=== PATIENT | male | born 1965 | race Caucasian/White ===

== ENCOUNTER 2022-10-30 08:29 | Emergency (ER) | payer OTHER, SELFPAY ==
[2022-10-30 08:36] VITALS: BP 121/74; PULSE 82; RESP 20; TEMP 36.9; O2SAT 96; BMI 22.0
--- NOTE | 2022-10-30 08:50 | HMH.EDGENADL ---
Discharge Plan Disposition Patient Disposition: Home, Self-Care Referrals Follow up/Referrals: Provider,Referral, MD [Primary Care Provider] - See instructions Activity Restrictions/Add. Instructions Additional Instructions/Restrictions: You had an ocular foreign body which has been removed and there remains a corneal rust ring. Make sure that you continue to take your topical antibiotic drops and follow-up as soon as possible with twister frame tender. A referral has been made you may call at 10 AM to make an appointment to be seen next available. Clinical Impressions Clinical Impression: Acute foreign body of left cornea, Corneal rust ring of left eye Discharge ED Provider: Polo Acosta General Adult HPI General Chief complaint: Eye Problems Stated complaint: AO [id number] FO in left eye Time Seen by Provider: 10/30/22 08:41 Mode of Arrival: Ambulatory Source of Information: Patient Limitations: No Limitations Description of Symptoms (Recalled from ER Triage Doc. by RN): pt to ed c/o left eye irritation. 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 States he was wearing eye protection and pain began 3 to 4 hours after he was working. Only on his left eye. Light is significantly bothering him he said he had a foreign body that was metallic in the past and this feels very similar. [facility] Disclaimer: The information contained in this section may have been updated after the patient was seen, as this information can be updated by other users. Social History Smoking Status: Never smoker alcohol intake: never current occupational status: other Travel in the last 8 weeks: None ROS Obtained: Yes All systems reviewed & no additional complaints except as documented Physical Exam General General appearance: alert Eye Eye exam: Present conjunctival redness, conjunctival injection and other (There is a punctate 1 to 2 mm metallic foreign body in the visual axis of the left eye no fluorescein uptake on exam) Respiratory Respiratory exam: Present normal lung sounds bilaterally; Absent respiratory distress Cardiovascular Cardiovascular exam: Present regular rate; Absent tachycardia Neurological Exam Neurological exam: Present alert and oriented X3 Medical Decision Making Loco Inquiry Pt receiving controlled substance: No Vital Signs: 10/30/22 08:36 Temperature 98.4 F Temperature Source Oral Pulse Rate [Left Radial] 82 Respiratory Rate 20 Blood Pressure [Right Arm] 121/74 Blood Pressure Mean [Right Arm] 89 02 Sat by Pulse Oximetry 96 Oxygen Delivery Method Room Air Orders (Tests/Meds): ED MEDICATIONS Discontinued Medications Generic Name Dose Route Start Last Admin Trade Name Everton PRN Reason Stop Dose Admin Tetanus/Reduced Diphtheria/Acell Pertussis 0.5 ml 10/30/22 08:50 10/30/22 09:04 Tet/Diphth/Pert-Adult 0.5ml Syringe IM 10/30/22 08:51 0.5 ml .ONCE ONE Administration Medical Decision Narrative: 57-year-old with superficial corneal epithelial pain and what appears to be a very small metallic foreign body without a significant rust ring. We will remove this with the side of a beveled needle. Patient was given tetracaine with complete resolution of his pain. We will give him topical antibiotic ointment drops and advised that he follow-up with an twister frame tender. Corneal foreign body was removed I subsequently did a slit-lamp exam which showed an obvious rust ring that remained. I advised that he follow-up with ophthalmology. Topical antibiotic ointments were given to him. No remaining foreign body was noted. Patient felt better upon discharge. Procedures Foreign Body Removal Time Out Performed: Yes Site: left and other (eye, cornea ) Description of foreign body: o
[2022-10-30 09:42] VITALS: BP 115/78; PULSE 85; RESP 18; TEMP 36.7; O2SAT 98
== END 2022-10-30 09:47 | disposition home or self-care (01) ==
PROVIDERS: Emergency Provider Student in an Organized Health Care Education/Training Program
DX: H16.022 Ring corneal ulcer, left eye (principal); T15.02XA Foreign body in cornea, left eye, initial encounter; Z23 Encounter for immunization
CPT/HCPCS: 90715; 96372; 99283

== ENCOUNTER 2024-10-18 10:04 | Outpatient (CLI) | payer BC, SELFPAY ==
--- OUTSIDE RECORDS SUMMARY | 2024-09-10 10:30 | XMS_ITS | Encounter Summary ---
Author Organization [facility] Address [address] [place] [address] Phone [email or web address] Care Team Providers Care Vocational Adviser Name Role Phone Unavailable Primary Care Provider Unavailabl e Encounter Details Date Type Department Care Team (Latest Contact Info) Description 09/10/2024 10:30 AM EDT Clinical Support [facility] [address] [facility] [address] [place] [address] Delfina De La Fuente NP [address] [place] [address] Right arm weakness (Primary Dx); Facial droop Social History Tobacco Use Types Packs/Day Years Used Date Smoking Tobacco: Every Day Cigarettes Smokeless Tobacco: Never Sex and Gender Information Value Date Recorded Sex Assigned at Not on file Legal Sex Male 6:05 AM CDT Gender Identity Not on file Sexual Orientation Not on file documented as of this encounter Progress Notes * Delfina De La Fuente NP - 09/10/2024 10:30 AM EDT Allergies Chart Review Health Maintenance History Immunizations Screenings Search Synopsis This Visit Vital Signs Assessment & Plan Right arm weakness Facial droop Due to symptoms recommended ED visit, pt is agreeable to ambulance transport. Reports to [facility], pt transferred to their care in stable condition for transport to and continuedcare at [facility]. Attempt x 2 to contact pt's son at patient request, Arvind: [phone], message left to contact clinic. Pt advised to f/u with GL later today for update. [facility] 240 ph: [phone] contacted with information pt transported to hospital at pt request. ECG NSR. Orders: ECG 12 lead Follow-up: No follow up orders placed. Subjective Ayaan White is a 59 y.o. Reason(s) for visit on 09/10/2024: Seen on emergency basis with disruption in normal clinic services. HPI: Pt presents as emergency walk in with c/o right arm weakness and numbness. Reports symptoms startedyesterday with numbness in right arm, has progressed to weakness and is now having a difficult timemoving right arm at all. Initially also had loss of vision that resolved fairly quickly. Denies anydaily medications. Denies any history of cardiac issues, hypertension, high cholesterol although admits he hasn't had labs or a provider visit in years. 1 PPD smoker x 38 years. Review of Systems Constitutional: Negative. HENT: Negative for trouble swallowing and voice change. Respiratory: Negative. Cardiovascular: Negative. Gastrointestinal: Negative. Neurological: Positive for facial asymmetry, weakness and numbness. Negative for dizziness, tremors, seizures, syncope, speech difficulty and light-headedness. Psychiatric/Behavioral: Negative. The following portions of the patient's chart were reviewed by me during this encounter and updatedas appropriate: Tobacco Allergies Meds Problems Med Hx Surg Hx Fam Hx Objective Visit Vitals Smoking Status Every Day Physical Exam Vitals reviewed. Constitutional: Appearance: Normal appearance. HENT: Head: Normocephalic. Cardiovascular: Rate and Rhythm: Normal rate and regular rhythm. Pulses: Normal pulses. Heart sounds: Normal heart sounds. Pulmonary: Effort: Pulmonary effort is normal. Skin: General: Skin is warm and dry. Capillary Refill: Capillary refill takes less than 2 seconds. Neurological: General: No focal deficit present. Mental Status: He is alert and oriented to person, place, and time. Cranial Nerves: Facial asymmetry (slight right facial droop) present. Sensory: Sensory deficit (reports abnormal sensation right arm) present. Motor: Weakness (right arm) and pronator drift (right arm) present. Psychiatric: Mood and Affect: Mood normal. Behavior: Behavior normal. Normal speech, no slurred speech. Able to say phrase You can't teach an old dog new tricks without difficulty. Delfina De La Fuente NP 09/10/2024 Note to patient: The Century Cures Act makes medical notes like these available to patients inthe interest of transparency. However, be advised this is a medical document. It is intended as peer to peer communication. It is written in medical language and may contain abbreviations or verbiagethat are unfamiliar. It may appear blunt or direct. Medical documents are intended to carry relevant information, facts as evident, and the clinical opinion of the practitioner. documented in this encounter Plan of Treatment Not on file documented as of this encounter Procedures Procedure Name Priority Date/Time Associated Diagnosis Comments ECG 12-LEAD Routine 09/10/2024 12:18 PM EDT Right arm weakness Facial droop documented in this encounter Results * ECG 12 lead (09/10/2024 12:18 PM EDT) Impressions Delfina De La Fuente NP - 09/10/2024 12:18 PM EDT NSR Delfina De La Fuente NP ECG ORDERABLES Final Result documented in this encounter Visit Diagnoses Diagnosis Right arm weakness- Primary Other musculoskeletal symptoms referable to limbs Facial droop Facial weakness documented in this encounter
--- OUTSIDE RECORDS SUMMARY | 2024-09-14 16:00 | XMS_ITS | Encounter Summary ---
Author Organization [facility] Address [address] [place] [address] Phone CareEverywhereSuppor Care Team Providers Care Desk Lieutenant Name Role Phone Unavailable Primary Care Provider Unavailabl e Reason for Visit * Reason Comments Return to Work / Duty Encounter Details Date Type Department Care Team (Latest Contact Info) Description 09/14/2024 4:00 PM EDT Clinical Support MALATHI [address] [place] [address] Emmanuel Canchola RN [address] [place] [address] Return to work evaluation (Primary Dx) Social History Tobacco Use Types Packs/Day Years Used Date Smoking Tobacco: Every Day Cigarettes Smokeless Tobacco: Never Depression Answer Date Recorded PHQ Total Score 0 09/14/2024 Sex and Gender Information Value Date Recorded Sex Assigned at Not on file Legal Sex Male 6:05 AM CDT Gender Identity Not on file Sexual Orientation Not on file documented as of this encounter Last Filed Vital Signs Vital Sign Reading Time Taken Comments Blood Pressure 111/74 09/14/2024 3:20 PM EDT Pulse 98 09/14/2024 3:20 PM EDT Temperature - - Respiratory Rate 18 09/14/2024 3:20 PM EDT Oxygen Saturation 97% 09/14/2024 3:20 PM EDT Inhaled Oxygen Concentration - - Weight - - Height - - Body Mass Index - - documented in this encounter Patient Instructions * Patient Instructions* Emmanuel Canchola RN - 09/14/2024 4:00 PM EDT RTW Regular Duty per release note RTC PRN documented in this encounter Progress Notes * Emmanuel Canchola RN - 09/14/2024 4:00 PM EDT Subjective Ayaan White is a 59 y.o. male who presents for personal return to work after personal medical leave of absence for R arm pain. WD ID: [id number] Employer: [employer]: [id number] Shift: 2 Full-time GL and #: Unknown GL Previous/current indefinite restrictions? No LDW: 09/10/24 DOS: NA PROCEDURE: NA SURGEON: NA RELEASE: Regular Duty 09/14/24 Additional notes from phone call: TM walked into [facility] clinic on 09/10/24 for R arm pain. TM was showing stroke symptoms so ambulance was called and TM was transported to [facility]. Released reg duty. If WMLOA, still getting compensation from work comp? No: [employer] If WMLOA, treatment for any personal medical condition during leave? No If PMLOA, work-related injury immediately before leave? No Same day occ or personal follow up scheduled? No Reviewed and/or scheduled for WC/WH? No Request sent to confirm cost center? No Above per Rahel Vyas, EMT phone call 09/10/2024 reviewed by triage nurse. PMLOA. TM states ALS to [facility] ER on 09/10/24. TM states everything looked good and was told possibleslight obstruction that worked itself out . TM states no cardio F/U done. TM states started on cholesterol medication. TM states all symptoms resolved. TM states 0/10 at rest and worst. TM states CT was WNL. TM states he feels ready to RTW. Consulted with Jama BAHENA who agrees with POC Triage nurse: TAMIR RN HPI History Reviewed: Tobacco Meds Med Hx Surg Hx Objective Visit Vitals BP 111/74 Pulse 98 Resp 18 SpO2 97% Smoking Status Every Day Review of Systems PHQ-9 Total Score: 0 (09/14/2024 3:21 PM) Physical Exam Assessment: ICD-10-CM ICD-9-CM 1. Return to work evaluation Z76.89 V72.85 No orders of the defined types were placed in this encounter. There are no Patient Instructions on file for this visit. documented in this encounter Plan of Treatment Not on file documented as of this encounter Visit Diagnoses Diagnosis Return to work evaluation- Primary Other specified examination documented in this encounter
--- OUTSIDE RECORDS SUMMARY | 2024-10-18 10:08 | XMS_ITS | Clinical Summary ---
Author Organization [facility] Address [address] [place] [address] Care Team Providers Care Geriatric Psychiatrist Name Role Phone Provider, No Known Primary Care Provider Unavail able Allergies No known active allergies Medications amoxicillin-clav ulanate (AUGMENTIN) 875-125 MG per tabletIndication s:Acute mucoid otitis media of right ear Take 1 tablet by mouth 2 (Two) Times a Day. 20 tablet 03/13/2018 Active predniSONE (DELTASONE) 20 MG tabletIndication s:Acute mucoid otitis media of right ear Take 1 tablet by mouth Daily. 5 tablet 03/13/2018 Active Active Problems No known active problems Social History Tobacco Use Types Packs/Day Years Used Date Smoking Tobacco: Every Day Cigarettes Alcohol Use Standard Drinks/Week Comments Yes 1 (1 standard drink = 0.6 oz pur e alcohol) Abuse Screen Answer Date Recorded Unsafe at Home or Work/School Not on file Feels Threatened by Someone? Not on file 01/2023 Does Anyone Keep You from Co ntacting Others or Doint Things Outside the Home? Not on file 12/19/2022 Physical Sign of Abuse Present Not on file 1 Housing Stability Answer Date Recorded Current Living Arrangements Not on file 12/09 Potentially Unsafe Housing Conditions Not on quirino e 12/19/2022 Family and Community Support Answer Sushil e Recorded Help with Day-to-Day Activities Not on file 12/19/2022 Lonely or Isolated Not on file 12/19/2022 Employment Answer Date Recorded Do you want help finding or keeping work or a jorgito b? Not on file 12/19/2022 Disabilities Answer Date Recorded Concentrating, Remembering, or Making Decisions Difficulty Not on file 12/19/2022 Doing Errands Independently Difficulty Not on fi le 12/19/2022 Education Answer Date Recorded Help with school or training? Not on file Preferred Language Not on file 12/19/2022 Sex and Gender Information Value Date Recorded Sex Assigned at Not on file Legal Sex Male 8:37 AM EDT Gender Identity Not on file Sexual Orientation Not on file Last Filed Vital Signs Vital Sign Reading Time Taken Comments Blood Pressure 120/80 03/13/2018 12:20 PM EST Pulse 80 03/13/2018 12:20 PM EST Temperature 36.8 C (98.3 F) 03/13/2018 12:20 PM EST Respiratory Rate 18 10/10/2015 9:44 AM EDT Oxygen Saturation 98% 03/13/2018 12:20 PM EST Inhaled Oxygen Concentration - - Weight 68 kg (150 lb) 10/10/2015 8:45 AM EDT Height 172.7 cm (5' 8 ) 10/10/2015 8:45 AM EDT Body Mass Index 22.81 10/10/2015 8:45 AM EDT Plan of Treatment Health Maintenance Due Date Last Done Comments TDAP/TD VACCINES (1 - Tdap) 05/21/1986 COLOGUARD 05/21/2012 COLON CANCER SCREENING 5 YEAR SIGMOIDOSCOPY 05/21/2012 COLONOSCOPY 05/21/2012 COLORECTAL CANCER SCREENING 05/21/2012 CT COLONOGRAPHY 05/21/2012 FECAL OCCULT BLOOD TEST 05/21/2012 FIT Testing (1 year) 05/21/2012 Pneumococcal Vaccine 50+ (1 of 1 - PCV) 05/21/2017 ZOSTER VACCINE (1 of 2) 05/21/2017 ANNUAL PHYSICAL 03/13/2018 HEPATITIS C SCREENING 03/13/2018 COVID-19 Vaccine ( - season) 2023 INFLUENZA VACCINE 12/09/2024 Care Teams Geriatric Psychiatrist Relationship Specialty Start Date End Date Provider, No Known [facility] [address] PCP - General 10/10/15
--- OUTSIDE RECORDS SUMMARY | 2024-10-18 10:08 | XMS_ITS | Encounter Summary ---
Author Organization [facility] Address [address] [place] [address] Phone [email or web address] Care Team Providers Care Flight Attendant/Inflight Supervisor Name Role Phone Unavailable Primary Care Provider Unavailabl e Encounter Details Date Type Department Care Team (Late st Contact Info) Description 09/14/2024 Telephone [facility] [address] [place] [phone] Rahel Vyas EMT Social History Tobacco Use Types Packs/Day Years Used Date Smoking Tobacco: Every Day Cigarettes Smokeless Tobacco: Never Depression Answer Date Recorded PHQ Total Score 0 09/14/2024 Sex and Gender Information Value Date Recorded Sex Assigned at Not on file Legal Sex Male 6:05 AM CDT Gender Identity Not on file Sexual Orientation Not on file documented as of this encounter Miscellaneous Notes * Telephone Encounter - JOVANY Zavala - 09/14/2024 7:27 AM EDT Ayaan White calls clinic to discuss return to work after personal medical leave of absence for R arm pain. WD ID: Employee ID Not Defined Employer: [employer]: [id number] Shift: 2 Full-time GL and #: Unknown GL Previous/current indefinite restrictions? No LDW: 09/10/24 DOS: NA PROCEDURE: NA SURGEON: NA RELEASE: Regular Duty 09/14/24 Additional notes from phone call: TM walked into [facility] clinic on 09/10/24 for R arm pain. TM was showing stroke symptoms so ambulance was called and TM was transported to [facility]. Released reg duty. If WMLOA, still getting compensation from work comp? No: [employer] If WMLOA, treatment for any personal medical condition during leave? No If PMLOA, work-related injury immediately before leave? No Same day occ or personal follow up scheduled? No Reviewed and/or scheduled for WC/WH? No Request sent to confirm cost center? No Rahel Vyas, EMT documented in this encounter Plan of Treatment Not on file documented as of this encounter Visit Diagnoses Not on filedocumented in this encounter
--- OUTSIDE RECORDS SUMMARY | 2024-10-18 10:08 | XMS_ITS | Clinical Summary ---
Author Organization [facility] Address [address] [place] [address] Phone [email or web address] Care Team Providers Care Helpdesk Technician Name Role Phone Unavailable Primary Care Provider Unavailabl e Allergies No known active allergies Medications atorvastatin (LIPITOR) 20 MG tablet 09/11/2024 Active Active Problems No known active problems Encounters Date Type Department Care Team Description 09/14/2024 4:00 PM EDT Clinical Support [facility] [address] [address] Emmanuel Canchola, JAQUAN Return to work evaluation (Primary Dx) 09/14/[address] [address] Rahel Vyas, JOVANY 09/10/2024 10:30 AM EDT Clinical Support [address] [address] Delfina De La Fuente NP Right arm weakness (Primary Dx); Facial droop 09/10/2024 Telephone [facility] [address] [place] [phone] Sher Steiner RN 09/10/2024 Telephone [facility] [address] [place] [address] Sher Steiner RN from Last 3 Months Social History Tobacco Use Types Packs/Day Years Used Date Smoking Tobacco: Every Day Cigarettes Smokeless Tobacco: Never Tobacco Cessation:Ready to Q uit: Not Asked; Counseling Given: Not Answered Depression Answer Date Recorded PHQ Total Score 0 09/14/2024 Sex and Gender Information Value Date Recorded Sex Assigned at Not on file Legal Sex Male 6:05 AM CDT Gender Identity Not on file Sexual Orientation Not on file Last Filed Vital Signs Vital Sign Reading Time Taken Comments Blood Pressure 111/74 09/14/2024 3:20 PM EDT Pulse 98 09/14/2024 3:20 PM EDT Temperature 36.7 C (98 F) 07/29/2024 12:55 PM EDT Respiratory Rate 18 09/14/2024 3:20 PM EDT Oxygen Saturation 97% 09/14/2024 3:20 PM EDT Inhaled Oxygen Concentration - - Weight 60.3 kg (133 lb) 07/29/2024 12:55 PM EDT Height 172.7 cm (5' 8 ) 07/29/2024 12:55 PM EDT Body Mass Index 20.22 07/29/2024 12:55 PM EDT Plan of Treatment Health Maintenance Due Date Last Done Comments CT Colonography 1967 Colonoscopy 1967 Colorectal Cancer Screening Combo 1967 DNA Cologuard 1967 Dental Cleaning/Exam 1967 FIT or FOBT Test 1967 HIV Screening 1967 Hepatitis C Screening 1967 Sigmoidoscopy 1967 Hep B Infection Screening - Triple Screen 05/21/1985 Hepatitis B Immunization (1 of 3 - 19+ 3-dose series) 05/21/1986 Pneumococcal: Ped (0 to 5 Yr s) and At-Risk Member (6 to 64 Yrs) (1 of 2 - PCV) 05/21/1986 Zoster Immunization (1 of 2) 05/21/2017 Covid-19 Immunization (1 - 2 season) 2023 Influenza Immunization (#1) 2024 Annual Preventive Exam 07/29/2025 07/29/2024 Tetanus Diphtheria and Pertu ssis Immunization (2 - Td or Tdap) 10/30/2032 10/30/2022 HIB Immunization Aged Out No longer e ligible based on patient's age to complete this topic HPV Immunization Aged Out No longer e ligible based on patient's age to complete this topic Hepatitis A Immunization Aged Out No longer eligible based on patient's age to complete this topic Polio Immunization Aged Out No longer eligible based on patient's age to complete this topic Procedures Procedure Name Priority Date/Time Associated Diagnosis Comments ECG 12-LEAD Routine 09/10/2024 12:18 PM EDT Right arm weakness Facial droop SPIROMETRY WITHOUT BRONCHODILATOR Routine 07/29/2024 12:58 PM EDT Pre-employment examination from Last 3 Months Results * ECG 12 lead (09/10/2024 12:18 PM EDT) [place] Delfina De La Fuente NP - 09/10/2024 12:18 PM EDT NSR us Delfina De La Fuente NP ECG ORDERABLES Final Result * (ABNORMAL) Spirometry, Complete CPT 72539 (07/29/2024 12:58 PM EDT) FVC 3.69 liters Comment:82% FEV1 2.50 liters Comment:72% FEV1/FVC 68% % Comment:89% us Nely BAHENA PFT ORDERABLES Final Result from Last 3 Months Insurance OPT OUT NO COPAY NB
--- OUTSIDE RECORDS SUMMARY | 2024-10-18 10:08 | XMS_ITS | Encounter Summary ---
Author Organization [facility] Address [address] [place] [address] Phone [email or web address] Care Team Providers Care Distributed Energy Systems Consultant Name Role Phone Unavailable Primary Care Provider Unavailabl e Encounter Details Date Type Department Care Team (Late st Contact Info) Description 09/10/2024 Telephone [facility] [address] [place] [address] Sher Steiner, RN [address] [place] [address] Social History Tobacco Use Types Packs/Day Years Used Date Smoking Tobacco: Every Day Cigarettes Smokeless Tobacco: Never Sex and Gender Information Value Date Recorded Sex Assigned at Not on file Legal Sex Male 6:05 AM CDT Gender Identity Not on file Sexual Orientation Not on file documented as of this encounter Miscellaneous Notes * Telephone Encounter - Sher Steiner RN - 09/10/2024 6:34 PM EDT Attempted to call patient for wellness check after emergency walk in today. -Attempted to contact TM. No answer. -Left voicemail requesting call back. -Interviewer: Obdulia Olivarez RN 09/10/2024, 6:35 PM documented in this encounter Plan of Treatment Not on file documented as of this encounter Visit Diagnoses Not on filedocumented in this encounter
--- OUTSIDE RECORDS SUMMARY | 2024-10-18 10:08 | XMS_ITS | Encounter Summary ---
Author Organization [facility] Address [address] [place] [address] Phone [email or web address] [email or web address] Care Team Providers Care R&D Engineer Name Role Phone Unavailable Primary Care Provider Unavailabl e Encounter Details Date Type Department Care Team (Late st Contact Info) Description 09/10/[address] [facility] [address] [place] [address] Sher Steiner, JAQUAN [address] [place] [address] Social History Tobacco Use Types [...] Encounter - Sher Steiner RN - 09/10/2024 6:39 PM EDT Patient still at [facility]. They are keeping him overnight. They have not diagnosed him. They have done a CT scan and doing an echo. 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 Will call and check in on Saturday. Obdulia Olivarez RN 6:43 PM documented in this encounter Plan of Treatment Not on file documented as of this encounter Visit Diagnoses Not on filedocumented in this encounter
--- NOTE | 2024-10-18 10:23 | XR_ITS ---
PROCEDURE INFORMATION: Exam: XR Chest Exam date and time: 10/18/2024 10:15 AM Age: 59 years old Clinical indication: Pain; Chest pressure; Additional info: Chest pain TECHNIQUE: Imaging protocol: Radiologic exam of the chest. Views: 2 views. COMPARISON: No relevant prior studies available. FINDINGS: Lungs: Patchy opacity in the right lung apex may represent atelectasis or infection Pleural spaces: Unremarkable. No pleural effusion. No pneumothorax. Heart/Mediastinum: Unremarkable. No cardiomegaly. Bones/joints: Unremarkable. IMPRESSION: Patchy opacity in the right lung apex may represent atelectasis or infection.
--- NOTE | 2024-10-18 10:23 | XR_ITS ---
PROCEDURE INFORMATION: Exam: XR Right Shoulder Exam date and time: 10/18/2024 10:17 AM Age: 59 years old Clinical indication: Pain; Shoulder; Right; Additional info: Pain in right shoulder TECHNIQUE: Imaging protocol: Radiologic exam of the right shoulder. Views: 2 or more views. COMPARISON: CR Chest 10/18/2024 10:15 AM FINDINGS: Bones/joints: Postsurgical changes involves the right shoulder joint. Lungs: Patchy opacity in the right lung apex likely representing atelectasis or infection. Soft tissues: Normal. IMPRESSION: Patchy opacity in the right lung apex likely representing atelectasis or infection. Postsurgical changes involves the right shoulder joint.
== END 2024-10-18 23:59 | disposition home or self-care (01) ==
PROVIDERS: PCP Internal Medicine; Visit Provider Internal Medicine
DX: M25.511 Pain in right shoulder (principal); R91.8 Other nonspecific abnormal finding of lung field; R07.9 Chest pain, unspecified
CPT/HCPCS: 71046; 73030